=== PATIENT | female | born 1995 | race African-American/Black ===

== ENCOUNTER 2021-08-24 15:10 | Emergency (ER) | payer BC, OTHER ==
[~2021-08-24] VITALS: Ht 162.6 cm; Wt 81.6 kg
[2021-08-24 18:07] VITALS: BP 116/61
== END 2021-08-24 18:08 | disposition home or self-care (01) ==
LOC: ER 15:10
DX: R09.89 Other specified symptoms and signs involving the circulatory and respiratory systems (principal)
CPT/HCPCS: 74018

== ENCOUNTER 2022-05-25 10:31 | Emergency (ER) | payer BC, MEDICAID ==
[~2022-05-25] VITALS: Ht 162.6 cm; Wt 80.1 kg
[2022-05-25 10:50] VITALS: BP 125/76
[2022-05-25 11:36] LABS: Urine Bacteria FEW /hpf (None Seen); Urine Blood Negative /uL (Negative); Urine Mucus FEW (None Seen); Urine Specific Gravity 1.047 (1.001-1.035); Urine WBC 4 /hpf (0 - 5)
[2022-05-25 11:57] LABS: Basophils # (auto) 0.1 10 ^3/uL (0-0.2); Basophils % (auto) 0.7 % (0.0-2.0); Eosinophils # (auto) 0.1 10 ^3/uL (0-0.8); Eosinophils % (auto) 0.8 % (0.0-7.0); Hematocrit 39.5 % (36.0-46.0); Hemoglobin 13.1 g/dL (12.2-16.2); Lymphocytes # (auto) 2.1 10 ^3/uL (0.4-5.4); Lymphocytes % (auto) 24.4 % (10.0-50.0); Mean Corpuscular Hemoglobin 29.4 pg (28.0-32.0); Mean Corpuscular Hgb Conc. 33.2 g/dL (32.0-36.0); Mean Corpuscular Volume 88.5 fL (80.0-100.0); Monocytes # (auto) 0.8 10 ^3/uL (0-1.3); Monocytes % (auto) 9.1 % (0.0-12.0); Neutrophils # (auto) 5.5 10 ^3/uL (1.6-8.6); Nucleated Red Blood Cells % 0.1 %; Red Blood Cells 4.47 10^6/uL (4.0-5.20); Red Cell Distribution Width 13.4 % (11.8-14.3); White Blood Cell 8.5 10^3/uL (4.4-10.8)
[2022-05-25 12:06] LABS: BUN/Creatinine Ratio 19.4; Calcium 9.1 mg/dL (8.5-10.1)
[2022-05-25] MEDS ORDERED: KETOROLAC TROMETH 60MG/2ML VIAL IM ONE (12:30)
[2022-05-25] MEDS ORDERED: IBUP800T27 PO (12:55)
== END 2022-05-25 12:57 | disposition home or self-care (01) ==
LOC: ER 10:31
DX: N83.201 Unspecified ovarian cyst, right side (principal); R10.31 Right lower quadrant pain; Z79.1 Long term (current) use of non-steroidal anti-inflammatories (NSAID)
CPT/HCPCS: 36415; 74176; 80048; 81001; 81025; 85025; 96372; 99284; J1885

== ENCOUNTER 2023-05-07 18:41 | Emergency (ER) | payer BC, MEDICAID ==
[~2023-05-07] VITALS: Ht 162.6 cm; Wt 87.4 kg
[~2023-05-07 18:41] MED LIST: IBUP-1456 PO
[2023-05-07 18:51] VITALS: BP 135/78; PULSE 67; RESP 16; TEMP 97.8
[2023-05-07] MEDS ORDERED: PRED20TA2 PO (20:24)
[2023-05-07] MEDS ORDERED: CLIN150C18 PO (20:24)
[2023-05-07] MEDS ORDERED: LIDO2SOL18 MT (20:24)
[2023-05-07] MEDS ORDERED: IBUPROFEN 600 MG TAB PO ONE (20:30)
[2023-05-07] MEDS ORDERED: DexAMETHasone SOD PHOS 10MG/1ML VIAL INJ IM ONE (20:30)
[2023-05-07] MEDS ORDERED: LIDOCAINE VISCOUS 2% 15ML UD MT ONE (20:30)
[2023-05-07] MEDS ORDERED: cefTRIAXone SOD 1,000 MG VL IM ONE (20:30)
[2023-05-07 22:09] VITALS: O2SAT 98
== END 2023-05-07 22:15 | disposition home or self-care (01) ==
LOC: ER 18:41
DX: J03.90 Acute tonsillitis, unspecified (principal); Z79.899 Other long term (current) drug therapy
CPT/HCPCS: 96372; 99284; J0696; J1100

== ENCOUNTER 2023-10-07 15:05 | Emergency (ER) | payer OTHER, MEDICAID ==
[~2023-10-07] VITALS: Ht 162.6 cm; Wt 84.8 kg
[~2023-10-07 15:05] MED LIST changes: +CLIN150C18 PO; +LIDO2SOL18 MT; +PRED20TA2 PO
[2023-10-07 17:30] LABS: Basophils # (auto) 0 10 ^3/uL (0-0.2); Basophils % (auto) 1.1 % (0.0-2.0); Eosinophils # (auto) 0 10 ^3/uL (0-0.8); Eosinophils % (auto) 0.3 % (0.0-7.0); Hematocrit 38.8 % (36.0-46.0); Hemoglobin 13.1 g/dL (12.2-16.2); Lymphocytes # (auto) 0.9 10 ^3/uL (0.4-5.4); Lymphocytes % (auto) 21.8 % (10.0-50.0); Mean Corpuscular Hemoglobin 29.5 pg (28.0-32.0); Mean Corpuscular Hgb Conc. 33.7 g/dL (32.0-36.0); Mean Corpuscular Volume 87.4 fL (80.0-100.0); Monocytes # (auto) 0.7 10 ^3/uL (0-1.3); Monocytes % (auto) 16.2 % (0.0-12.0); Neutrophils # (auto) 2.4 10 ^3/uL (1.6-8.6); Neutrophils % (auto) 60.6 % (37.0-80.0); Red Blood Cells 4.44 10^6/uL (4.0-5.20); Red Cell Distribution Width 13.3 % (11.8-14.3)
[2023-10-07 17:47] LABS: Alanine Aminotransferase 21 U/L (7-40); Albumin 4.3 g/dL (3.2-4.8); Alkaline Phosphatase 90 U/L (46-116); Anion Gap 7 (5-15); Aspartate Aminotransferase 27 U/L (13-40); BUN/Creatinine Ratio 9.6 (10.0-20.0); Bilirubin, Total 0.8 mg/dL (0.2-1.0); Blood Urea Nitrogen 7 mg/dL (9-23); Calcium 9.1 mg/dL (8.5-10.1); Carbon Dioxide 24 mmol/L (20-30); Chloride 105 mmol/L (98-107); Glucose 86 mg/dL (74-106); Potassium 3.8 mmol/L (3.5-5.1); Sodium 136 mmol/L (136-145); Total Protein 7.2 g/dL (5.7-8.2)
[2023-10-07 20:04] LABS: Rapid Strep A Screen-Throat Positive
[2023-10-07 20:30] VITALS: BP 118/61; TEMP 98.7
[2023-10-07] MEDS: PENICILLIN G BENZ 1,200,000 UNITS/2 ML SYRG IM ONE (21:12)
[2023-10-07] MEDS: LIDOCAINE VISCOUS 2% 15ML UD MT ONE (21:13)
[2023-10-07] MEDS: HYDROcodone-ACET 5/325MG TAB PO ONE (21:13)
[2023-10-07] MEDS: DexAMETHasone SOD PHOS 10MG/1ML VIAL INJ IM ONE (21:13)
[2023-10-07] MEDS ORDERED: AMOX500C2 PO (21:21)
[2023-10-07] MEDS ORDERED: PRED20TA2 PO (21:21)
[2023-10-07] MEDS ORDERED: IBUP1TAB5 PO (21:21)
[2023-10-07 21:51] VITALS: PULSE 105; RESP 18; O2SAT 95
[2023-10-07] MEDS ORDERED: IOHEXOL 350 MG/ML 100ML IJ ONE (23:34)
== END 2023-10-07 21:58 | disposition home or self-care (01) ==
LOC: ER 15:05
DX: J02.0 Streptococcal pharyngitis (principal); R59.1 Generalized enlarged lymph nodes; Z79.899 Other long term (current) drug therapy
CPT/HCPCS: 36415; 70491; 80053; 85025; 86308; 87880; 96372; 99285; J0561; J1100; Q9967